=== PATIENT | female | born 1980 | race Caucasian/White ===

== ENCOUNTER 2025-07-27 13:19 | Outpatient (CLI) | payer BC, SELFPAY ==
--- NOTE | ~2025-07-27 | US_ITS ---
US thyroid INDICATION: Thyroid goiter. TECHNIQUE: Real-time sonographic images of the thyroid gland were obtained. COMPARISON: No prior studies for comparison. FINDINGS: The right thyroid lobe measures 3.8 x 1.3 x 1.6 cm. The left thyroid lobe measures 3 x 1.2 x 1.3 cm. Heterogeneous thyroid echotexture with bilateral thyroid masses. Largest dominant mass in the right lobe measures 1.1 x 1.2 x 0.9 cm and is solid, hypoechoic, smoothly marginated, wider than tall without echogenic foci, TR 4. Largest dominant mass in the left lobe Measures 12 x 11 x 8 mm and is solid, hypoechoic, wider than tall, smoothly marginated without echogenic foci, TR 4. Normal vascular flow is present. IMPRESSION: 1. Multiple bilateral thyroid masses, consistent with multinodular goiter. No discrete masses meet sonographic criteria for biopsy. Recommend follow-up thyroid ultrasound in 12 months. Reviewed, dictated and finalized at location I. [employer] IMPRESSION: 1. Multiple bilateral thyroid masses, consistent with multinodular goiter. No discrete masses meet sonographic criteria for biopsy. Recommend follow-up thyro id ultrasound in 12 months.
== END 2025-07-27 13:20 | disposition home or self-care (01) ==
PROVIDERS: PCP Internal Medicine Endocrinology, Diabetes & Metabolism; Visit Provider Internal Medicine Endocrinology, Diabetes & Metabolism
DX: E04.2 Nontoxic multinodular goiter (principal)
CPT/HCPCS: 76536